=== PATIENT | female | born 1950 | race Caucasian/White ===

== ENCOUNTER → 2024-01-23 12:44 | Outpatient (REF) | payer MEDICARE, OTHER, SELFPAY | LOC: RAD 12:44 | PROVIDERS: ATTENDING PHYSICIAN Internal Medicine; FAMILY PHYSICIAN Family Medicine | DX: I25.10 Atherosclerotic heart disease of native coronary artery without angina pectoris (principal) | CPT/HCPCS: 93922; 93925 ==

== ENCOUNTER → 2024-01-26 10:32 | Outpatient (REF) | payer MEDICARE, OTHER, SELFPAY | LOC: RAD 10:32 | PROVIDERS: ATTENDING PHYSICIAN Obstetrics & Gynecology; FAMILY PHYSICIAN Family Medicine | DX: Z78.0 Asymptomatic menopausal state (principal) | CPT/HCPCS: 77080 ==

== ENCOUNTER → 2024-02-27 13:00 | Outpatient (REF) | payer MEDICARE, OTHER, SELFPAY | LOC: PAVMRI 13:00 | PROVIDERS: ATTENDING PHYSICIAN Otolaryngology; FAMILY PHYSICIAN Family Medicine; PRIMARYCARE PHYSICIAN Physician Assistant | DX: H91.92 Unspecified hearing loss, left ear (principal) | CPT/HCPCS: 70553; A9575 ==

== ENCOUNTER → 2024-09-02 09:00 | Outpatient (REF) | payer MEDICARE, OTHER, SELFPAY | LOC: WDC 09:00 | PROVIDERS: ATTENDING PHYSICIAN Obstetrics & Gynecology; FAMILY PHYSICIAN Family Medicine | DX: Z12.31 Encounter for screening mammogram for malignant neoplasm of breast (principal) | CPT/HCPCS: 77063; 77067 ==

== ENCOUNTER → 2025-06-20 06:54 | Outpatient (REF) | payer MEDICARE, OTHER, SELFPAY | LOC: RAD 06:54 | PROVIDERS: ATTENDING PHYSICIAN Nurse Practitioner Family | DX: R10.9 Unspecified abdominal pain (principal) | CPT/HCPCS: 76700 ==

== ENCOUNTER 2025-07-09 11:07 | Emergency (ER) | payer MEDICARE, OTHER, SELFPAY ==
[2025-07-09 11:18] VITALS: BP 161/71
[2025-07-09 11:52] LABS: Hematocrit 37.4 % (37.0-47.0); Hemoglobin 12.4 g/dL (12.0-16.0); Mean Corp Hgb Conc. 33.2 g/dL (33.0-37.0); Mean Corpuscular Volume 94.9 fL (81.0-99.0); Nucleated Red Blood Cells % 0 %; Platelet Count 282 10^3/uL (130-400); Red Cell Dist. Width 13.2 % (11.5-14.5)
[2025-07-09 12:09] LABS: ALT (SGPT) 26 U/L (0-35); AST (SGOT) 26 U/L (14-36); Albumin 4.1 g/dl (3.5-5.0); Alkaline Phosphatase 58 U/L (38-126); Blood Urea Nitrogen 16 mg/dl (7-17); Calcium 9.3 mg/dl (8.4-10.2); Carbon Dioxide 28 mmol/L (22-30); Chloride 109 mmol/L (98-107); Glucose 89 mg/dl (70-99); Potassium 4.3 mmol/L (3.5-5.1); Sodium 139 mmol/L (135-145); Total Protein 6.9 g/dl (6.3-8.2); eGFR > 60.00
[2025-07-09 12:22] LABS: Troponin I < 0.012 ng/ml
[2025-07-09 13:08] VITALS: BP 147/88
[2025-07-09 13:46] VITALS: BMI 26.8
[2025-07-09 14:00] VITALS: BP 146/72
--- NOTE | 2025-07-09 14:04 | ED.GENMED ---
History of Present Illness
General
Chief Complaint: Chest Pain
Time Seen by Provider: 07/09/25 13:01
History of Present Illness
History of Present Illness:
75-year-old female with history of high blood pressure and A-fib on Eliquis presenting to the emergency department for left-sided chest pain. Patient reports that she woke up around 4 AM with some chest discomfort with radiation to her arm. Does
note history of left frozen shoulder syndrome, so was unsure if the pain was coming from there. Overall pain has improved, however went to her primary care doctor prior to arrival who was concerned about her blood pressure being elevated and
possible EKG changes so sent to the ER for further assessment. Denies any difficulty breathing. Denies fever. Denies abdominal pain or GI symptoms. Denies additional acute medical complaint
Past History
Past History
ED Past Medical History: Hypercholesterolemia and Other (Frequent urinary tract infections)
ED Past Surgical History: Gynecological
Social History
Tobacco: Non-smoker
Alcohol: None
Drug: None
Personal:
Living: with family
Employment: Other (housewife)
Family History
Family History: Other (n/c)
Phy Exam
Physical Exam
Physical Exam:
General: Well-appearing, no clinical signs of dehydration, nontoxic and in no acute distress
HEENT: protecting airway
Neck: appears supple
CV: Normal heart rate, regular rhythm, no evidence of cyanosis. Mild tenderness to the left chest wall
Resp: No accessory muscle use, no increased work of breathing
Abd: Soft and non-distended, no tenderness to palpation, normal bowel sounds
Extremities: No deformities, no swelling
Neuro: alert, no focal neurologic deficit
: deferred
Rectal: deferred
Psych: Normal affect
Skin: Intact
Scores
Heart Score for Chest Pain Patients
STEMI patient?: No
History: Slightly or Non-Suspicious
ECG: Normal
Age: >/= 65 years
Risk Factors: 1 or 2 Risk Factors
Troponin: </= Normal Limit
Heart Score for Chest Pain Patients: 3
Heart Score Risk: 2.5% MACE over next 6 weeks
Course
Orders/Labs/Results
Orders:
Orders
07/09/25 11:21
Electrocardiogram (*1) Urgent
Reason for Study: Chest Pain
EKG- Treatment ONCE
07/09/25 11:40
Complete Blood Count/With Diff Urgent
Comprehensive Metabolic Panel Urgent
Troponin I Urgent
07/09/25 13:42
EKG- Treatment ONCE
07/09/25 14:40
Electrocardiogram (*1) Urgent
Reason for Study: Chest Pain
07/09/25 14:43
Troponin I Urgent
Abnormal Lab Results
07/09/25
11:40
RBC 3.94 L 10^6/uL
(4.20-5.40)
MCH 31.5 H pg
(27.0-31.0)
Absolute Lymphs (auto) 1.1 L 10^3/uL
(1.2-3.4)
Lymphocytes % 17.4 L %
(20.5-51.1)
Chloride 109 H mmol/L
(98-107)
07/09/25 11:40
07/09/25 11:40
Vital Signs
Initial and Last Documented VS:
Initial Vital Signs
Temp Pulse Resp BP Pulse Ox
98.0 F 70 18 161/71 97
07/09/25 11:18 07/09/25 11:18 07/09/25 11:18 07/09/25 11:18 07/09/25 11:18
Last Documented Vital Signs
Temp Pulse Resp BP Pulse Ox
98.0 F 63 18 146/72 97
07/09/25 11:18 07/09/25 14:00 07/09/25 14:00 07/09/25 14:00 07/09/25 14:07
MDM/Problems Addressed
MDM/Problems Addressed:
75-year-old female with history of A-fib on Eliquis and hypertension presenting to the emergency department for chest discomfort. Vital signs on arrival significant for mild hypertension which has improved since arrival.
On exam, patient is resting comfortably, no acute distress, benign cardiac and pulmonary exam. Some mild focal tenderness to the left chest wall, indicating likely musculoskeletal component. Notes that pain has improved since arrival. EKG
obtained on arrival, nonischemic, unchanged from prior. Overall low suspicion for ACS. On review of EMR, did have a stress test in May 2023, low risk. Also had a cardiac catheterization 2017, very mild coronary artery disease. Patient had
laboratory analysis prior to my assessment, negative troponin. Will plan for repeat troponin and repeat EKG. Patient otherwise hemodynamically stable.
15:40 -repeat troponin and EKG is unchanged. On reassessment patient remained stable. Ultimately feel stable for discharge with close interval follow-up with her primary care doctor and food beverage server. Return precautions discussed and patient
verbalized understanding
*Pulse Oximetry
SaO2: 97
Oxygen Mode of Delivery: Room air
Patient hypoxic: no
*EKG
Interpreted by ED Provider?: Yes
EKG Intrepretation Date: 07/09/25
EKG Intrepretation Time: 14:06
Interpretation: normal
Comparison EKG: no changes (04/06/23)
Heart Rate: 65
Rate: normal
Rhythm: sinus
Independence: normal axis
Interval: normal interval
QRS Pattern: normal QRS
Ischemia: no ischemia
*Critical Care Note
Total Time (30-74mins, 75-104mins- exclusive of procedures): Not Applicable
ED Attending Note
-
Portions of this chart may have been created with voice recognition software.� Occasional wrong word or��sound alike� substitutions may have occurred due to the inherent limitations of voice recognition software.
Discharge Plan
Departure
Prescriptions:
No Action
atorvastatin [Lipitor] 10 mg Tablet
10 mg PO HS
famotidine 20 mg Tablet
20 mg PO BID
amlodipine 5 mg Tablet
2.5 mg PO HS 30 Days Qty: 15 0RF
Eliquis 5 mg Tablet
5 mg PO BID 30 Days Qty: 60 0RF
metoprolol tartrate 25 mg Tablet
12.5 mg PO BID 30 Days Qty: 30 0RF
Referrals:
Ekaterina Gaitan CRNP [Family Provider, Family Practice]
Interventions
Interventions:
*Risk Screen - Suicide Last Done: 07/09/25 11:18
*General Assessment Last Done: 07/09/25 13:46
*Neglect/Abuse Screening Last Done: 07/09/25 13:46
*ED- Fall Risk Assessment Last Done: 07/09/25 13:46
*ED COVID-19 Vaccine History Last Done: 07/09/25 13:46
ED- Cardiac Assessment Last Done: 07/09/25 13:46
Discharge Date and Time
Print Language: SAMMARINESE
[2025-07-09 15:23] LABS: Troponin I < 0.012 ng/ml
[2025-07-09 15:48] VITALS: BP 128/59
== END 2025-07-09 15:55 | disposition home or self-care (01) ==
LOC: EMR 11:07
PROVIDERS: Emergency Medicine; EMERGENCY PHYSICIAN Student in an Organized Health Care Education/Training Program; FAMILY PHYSICIAN Nurse Practitioner Family
DX: R07.9 Chest pain, unspecified (principal); I25.10 Atherosclerotic heart disease of native coronary artery without angina pectoris; I48.91 Unspecified atrial fibrillation; I10 Essential (primary) hypertension; E78.00 Pure hypercholesterolemia, unspecified; M75.02 Adhesive capsulitis of left shoulder; Z79.01 Long term (current) use of anticoagulants
CPT/HCPCS: 99283; 80053; 84484; 85025; 93005

== ENCOUNTER → 2025-07-28 10:06 | Outpatient (REF) | payer MEDICARE, OTHER, SELFPAY ==
[2025-07-28 17:51] LABS: Urine Character Clear (Clear)
[2025-07-28 18:31] LABS: Urine White Cell 0-2 /HPF (0-5)
== END ==
LOC: CLAB 10:06
PROVIDERS: ATTENDING PHYSICIAN Obstetrics & Gynecology
DX: N39.0 Urinary tract infection, site not specified (principal)
CPT/HCPCS: 81003; 81015; 87086

== ENCOUNTER → 2025-08-15 12:15 | Outpatient (REF) | payer MEDICARE, OTHER, SELFPAY | LOC: HWRCS 12:15 | PROVIDERS: ATTENDING PHYSICIAN Internal Medicine Cardiovascular Disease; FAMILY PHYSICIAN Physician Assistant | DX: I48.0 Paroxysmal atrial fibrillation (principal); Z01.810 Encounter for preprocedural cardiovascular examination | CPT/HCPCS: 78452; 93017; A9500 ==

== ENCOUNTER → 2025-09-06 10:58 | Outpatient (REF) | payer MEDICARE, OTHER, SELFPAY | LOC: WDC 10:58 | PROVIDERS: ATTENDING PHYSICIAN Obstetrics & Gynecology; FAMILY PHYSICIAN Family Medicine | DX: Z12.31 Encounter for screening mammogram for malignant neoplasm of breast (principal) | CPT/HCPCS: 77063; 77067 ==

== ENCOUNTER 2025-09-23 08:07 | Outpatient (RCR) | payer MEDICARE, OTHER, SELFPAY | END 2025-09-23 23:59 | disposition home or self-care (01) | LOC: RPT 08:07 | PROVIDERS: ATTENDING PHYSICIAN Nurse Practitioner Pediatrics | DX: R32 Unspecified urinary incontinence (principal); Z73.6 Limitation of activities due to disability; R35.0 Frequency of micturition; R39.15 Urgency of urination | CPT/HCPCS: 97110; 97112; 97161; 97530 ==

== ENCOUNTER 2025-10-14 08:00 | Outpatient (RCR) | payer MEDICARE, OTHER, SELFPAY | END 2025-10-14 23:59 | disposition home or self-care (01) | LOC: RPT 08:00 | PROVIDERS: ATTENDING PHYSICIAN Nurse Practitioner Pediatrics | DX: R32 Unspecified urinary incontinence (principal); Z73.6 Limitation of activities due to disability; R35.0 Frequency of micturition; R39.15 Urgency of urination | CPT/HCPCS: 97110; 97112 ==